=== PATIENT | male | born 1950 | race Caucasian/White ===

== ENCOUNTER 2020-02-19 13:44 | Outpatient (REF) | payer MEDICARE, OTHER, SELFPAY ==
--- NOTE | 2020-02-19 | MM_ITS ---
EXAMINATION: BONE DENSITOMETRY CLINICAL INDICATION: Osteopenia. COMPARISON: Baseline BD dated 12/30/2017. TECHNIQUE: Using a [employer] DXA System (software version: 13.1) manufactured by [employer], dual-energy x-ray absorptiometry was performed of the lumbar spine and left hip. The images are of good technical quality. Summary results are attached. FINDINGS: AP SPINE L1-L4: Current: BMD 0.960 g/cm2, Z-score -1.2, T-score -2.2, osteopenia, 1.1% increase from baseline (<5% change is not significant). Baseline: BMD 0.950 g/cm2. LEFT FEMUR, NECK: Current: BMD 0.836 g/cm2, Z-score -0.2, T-score -1.8, osteopenia. Baseline: BMD 0.851 g/cm2. LEFT FEMUR, TOTAL: Current: BMD 0.886 g/cm2, Z-score -0.5, T-score -1.5, osteopenia, 0.8% decrease from baseline (<5% change is not significant). Baseline: BMD 0.893 g/cm2. IDENTIFIED RISK FACTORS: History of fracture (adult). HISTORY OF FRACTURE: Other fracture (ribs). MEDICATIONS: Vitamin D. IMPRESSION: 1. DIAGNOSIS: Osteopenia based on the lowest T-score value of -2.2 in the lumbar spine applying World Health Organization criteria. 2. 10-YEAR FRACTURE RISK PREDICTION, FRAX: Major osteoporotic fracture (clinical spine, forearm, hip or shoulder) 10.2%. Hip fracture 2.6%. 3. Treatment Recommendations: NOF guidelines recommend consideration for treatment in postmenopausal women and men age 50 and older presenting with the following: -A hip or vertebral (clinical or morphometric) fracture. -T-score less than or equal to -2.5 at the femoral neck or spine after appropriate evaluation to exclude secondary causes. -Low bone mass at the hip or spine and a 10-year fracture probability by FRAX of greater than or equal to 3% for hip fracture or greater than or equal to 20% for major osteoporotic fracture based on the [place] adapted WHO algorithm. 4. Other Recommendations: All treatment decisions require clinical judgment and consideration of individual patient factors, including patient preferences, comorbidities, previous drug use, risk factors not captured in the FRAX model (e.g. frailty, falls, vitamin D deficiency, increased bone turnover, interval significant decline in bone density) and possible under or overestimation of fracture risk by FRAX. Additional medical evaluation for secondary cause of low bone mineral density may be appropriate. FUTURE SCAN RECOMMENDATION: People with diagnosed cases of osteoporosis or at high risk for fracture should have regular bone mineral density tests. For patients eligible for Medicare, routine testing is allowed once every 2 years. The testing frequency can be increased to one year for patients who have rapidly progressing disease, those who are receiving or discontinuing medical therapy to restore bone mass, or have additional risk factors.
== END 2020-02-19 13:45 | disposition home or self-care (01) ==
LOC: HO.MAMMO 13:44
PROVIDERS: PCP Internal Medicine; Visit Provider Internal Medicine
DX: Z13.820 Encounter for screening for osteoporosis (principal); M85.88 Other specified disorders of bone density and structure, other site
CPT/HCPCS: 77080

== ENCOUNTER 2020-04-08 08:45 | Outpatient (REF) | payer MEDICARE, OTHER, SELFPAY ==
[2020-04-08 10:23] LABS: MANUAL DIFF FLAG NO
[2020-04-08 10:47] LABS: Basophils Percent Auto 0.7 % (0-2); Eosinophils Absolute Auto 0.3 X10*3/uL (0.0-0.4); Eosinophils Percent Auto 6.4 % (0-4); Hemoglobin 14.2 g/dl (14.0-18.0); Imm Gran Abs Auto 0.01 X10*3/uL (0.00-0.03); Imm Gran Pct Auto 0.2 % (0.0-0.4); Lymphocytes Absolute Auto 1.1 X10*3/uL (1.2-4.9); Lymphocytes Percent Auto 26.9 % (20-40); Mean Corpuscular HGB Conc 33.8 g/dl (31.0-36.0); Mean Corpuscular Hemoglobin 31.9 pg (27.0-33.0); Mean Corpuscular Volume 94.4 fL (80-98); Mean Platelet Volume 11.1 fL (9.4-12.4); Monocytes Absolute Auto 0.3 X10*3/uL (0.1-1.2); Monocytes Percent Auto 7.8 % (2-11); Neutrophils Absolute Auto 2.5 X10*3/uL (2.0-8.3); Platelet Count 186 X10*3/uL (160-400); Red Blood Count 4.45 X10*6/uL (4.60-5.80); Red Cell Distribution Width 12.2 % (11.0-16.0); White Blood Count 4.2 X10*3/uL (4.8-10.8)
[2020-04-08 10:55] LABS: Estimated Average Glucose 105 mg/dL; Hemoglobin A1c % 5.3 %
[2020-04-08 10:59] LABS: Alanine Aminotransferase 25 U/L (0-40); Alkaline Phosphatase 59 U/L (39-117); Anion Gap 10 (12-20); Aspartate Amino Transferase 32 U/L (5-37); Bilirubin Total 2.1 mg/dL (0.0-1.0); Blood Urea Nitrogen 16 mg/dL (9-16); Carbon Dioxide 29 mmol/L (22-29); Chloride 101 mmol/L (96-108); Cholesterol 136 mg/dL; Estimated Glomerular Filt Rate > 60; Glucose Fasting 94 mg/dL (60-99); HDL Cholesterol 61 mg/dL; LDL Cholesterol Calculated 58 mg/dl; Potassium 5.1 mmol/l (3.3-5.1); Sodium 135 mmol/L (135-145); Total Protein 6.2 g/dL (6.5-8.0); Triglycerides 88 mg/dL
[2020-04-08 11:06] LABS: Glucose Urine UA NEG (NEG); Leukocyte Esterase Urine NEG (NEG); Nitrite Urine NEG (NEG); Urine Blood NEG (NEG); Urine Ketones NEG (NEG); Urine Protein NEG (NEG-TRACE)
[2020-04-08 11:07] LABS: Appearance Urine CLEAR; Color Urine YELLOW
[2020-04-08 11:14] LABS: Vitamin D 25-OH Total 34.5 ng/mL (>30)
[2020-04-08 11:24] LABS: Prostate Specific Antigen 1.33 ng/mL (<0.05-4.0)
[2020-04-08 11:53] LABS: Creatinine Urine 92.18 mg/dL; Microalbumin Urine < 5.0 mg/L
[2020-04-09 15:07] LABS: Calcium (PTHI) 9.3 mg/dL (8.6-10.3); PTHI 34 pg/mL (14-64)
== END 2020-04-08 08:46 | disposition home or self-care (01) ==
LOC: HO.LAB 08:45
PROVIDERS: Absent Provider Internal Medicine; PCP Internal Medicine; Visit Provider Internal Medicine
DX: E78.00 Pure hypercholesterolemia, unspecified (principal); R79.9 Abnormal finding of blood chemistry, unspecified; E80.4 Gilbert syndrome; R73.03 Prediabetes; D69.6 Thrombocytopenia, unspecified; E55.9 Vitamin D deficiency, unspecified; M85.88 Other specified disorders of bone density and structure, other site
CPT/HCPCS: 36415; 80053; 80061; 81003; 82043; 82306; 83036; 83970; 84153; 85025

== ENCOUNTER 2020-05-31 10:03 | Outpatient (REF) | payer MEDICARE, OTHER, SELFPAY ==
--- NOTE | 2020-05-31 | US_ITS ---
EXAMINATION: US RETROPERITONEAL LIMITED (RENAL ONLY) CLINICAL INFORMATION: Hypertension.. COMPARISON: None TECHNIQUE: Routine ultrasound and retroperitoneal Doppler imaging of kidneys was performed . FINDINGS: RIGHT KIDNEY: 8.9 x 5.9 x 5.5 cm (SAG x AP x TRV). The kidney is normal in size, contour, and echogenicity. Renal cortical thickness is normal. No calculi or focal parenchymal lesions. No hydronephrosis. There is anechoic cyst upper pole measuring 1.0 x 1.1 x 1.1 cm. LEFT KIDNEY: 9.3 x 5.3 x 5.5 cm (SAG x AP x TRV). The kidney is normal in size, contour, and echogenicity. Renal cortical thickness is normal. No calculi or focal parenchymal lesions. No hydronephrosis. On renal Doppler exam, Right kidney: The proximal renal artery velocity measures 96.7 cm/second, mid segment measures 89.8 cm/second, distal segment measures 1 30 cm/second. Renal aortic ratio have calculated as renal artery velocity is 112 cm/second. The average resistive index measures 0.72. The renal artery is widely patent. Left kidney: The proximal renal artery left images 1 12 cm/second, mid segment measures 1 43 cm/second, distal segment measures 84.6 cm/second. The renal aortic ratio cannot be calculated as the aortic velocities greater than 100 cm. The average resistive index measures 0.69. The renal artery is widely patent. US/US renal doppler IMPRESSION: Small cyst upper pole right kidney. No echogenic calculi or hydronephrosis in either kidney. No evidence of renal artery stenosis on renal Doppler exam..
--- NOTE | 2020-05-31 | US_ITS ---
EXAMINATION: US RETROPERITONEAL LIMITED (RENAL ONLY) CLINICAL INFORMATION: Hypertension.. COMPARISON: None TECHNIQUE: Routine ultrasound and retroperitoneal Doppler imaging of kidneys was performed . FINDINGS: RIGHT KIDNEY: 8.9 x 5.9 x 5.5 cm (SAG x AP x TRV). The kidney is normal in size, contour, and echogenicity. Renal cortical thickness is normal. No calculi or focal parenchymal lesions. No hydronephrosis. There is anechoic cyst upper pole measuring 1.0 x 1.1 x 1.1 cm. LEFT KIDNEY: 9.3 x 5.3 x 5.5 cm (SAG x AP x TRV). The kidney is normal in size, contour, and echogenicity. Renal cortical thickness is normal. No calculi or focal parenchymal lesions. No hydronephrosis. On renal Doppler exam, Right kidney: The proximal renal artery velocity measures 96.7 cm/second, mid segment measures 89.8 cm/second, distal segment measures 1 30 cm/second. Renal aortic ratio have calculated as renal artery velocity is 112 cm/second. The average resistive index measures 0.72. The renal artery is widely patent. Left kidney: The proximal renal artery left images 1 12 cm/second, mid segment measures 1 43 cm/second, distal segment measures 84.6 cm/second. The renal aortic ratio cannot be calculated as the aortic velocities greater than 100 cm. The average resistive index measures 0.69. The renal artery is widely patent. US/US renal BI IMPRESSION: Small cyst upper pole right kidney. No echogenic calculi or hydronephrosis in either kidney. No evidence of renal artery stenosis on renal Doppler exam..
== END 2020-05-31 10:04 | disposition home or self-care (01) ==
LOC: HO.HMGCX 10:03
PROVIDERS: PCP Internal Medicine; Visit Provider Internal Medicine
DX: I10 Essential (primary) hypertension (principal)
CPT/HCPCS: 76775; 93975

== ENCOUNTER 2021-04-21 10:48 | Outpatient (REF) | payer MEDICARE, OTHER, SELFPAY ==
[2021-04-21 10:51] LABS: MANUAL DIFF FLAG NO
[2021-04-21 11:10] LABS: Basophils Percent Auto 0.4 % (0-2); Eosinophils Absolute Auto 0.2 X10*3/uL (0.0-0.4); Eosinophils Percent Auto 4.6 % (0-4); Hematocrit 40.4 % (42.0-52.0); Hemoglobin 13.6 g/dl (14.0-18.0); Lymphocytes Absolute Auto 1.2 X10*3/uL (1.2-4.9); Lymphocytes Percent Auto 24.9 % (20-40); Mean Corpuscular HGB Conc 33.7 g/dl (31.0-36.0); Mean Corpuscular Hemoglobin 31.9 pg (27.0-33.0); Mean Corpuscular Volume 94.8 fL (80.0-98.0); Mean Platelet Volume 11.1 fL (9.4-12.4); Monocytes Absolute Auto 0.4 X10*3/uL (0.1-1.2); Monocytes Percent Auto 9.3 % (2-11); Neutrophils Absolute Auto 2.8 x10*3/uL (2.0-8.3); Neutrophils Percent Auto 60.8 % (45-73); Platelet Count 190 X10*3/uL (160-400); Red Blood Count 4.26 X10*6/uL (4.60-5.80); Red Cell Distribution Width 12.3 % (11.0-16.0); White Blood Count 4.6 X10*3/uL (4.8-10.8)
[2021-04-21 11:20] LABS: Appearance Urine CLEAR; Color Urine YELLOW; Glucose Urine UA NEG (NEG); Leukocyte Esterase Urine NEG (NEG); Nitrite Urine NEG (NEG); Specific Gravity - Urine 1.015 (1.005-1.025); Urine Blood NEG (NEG); Urine Ketones NEG (NEG); Urine Protein NEG (NEG-TRACE)
[2021-04-21 11:22] LABS: Estimated Average Glucose 108 mg/dL; Hemoglobin A1c % 5.4 %
[2021-04-21 11:42] LABS: Creatinine Urine 129.51 mg/dL; Microalbumin Urine < 5.0 mg/L
[2021-04-21 12:01] LABS: Alanine Aminotransferase 21 U/L (0-40); Albumin Level 3.9 g/dL (3.5-5.0); Alkaline Phosphatase 58 U/L (39-117); Anion Gap 10 (12-20); Aspartate Amino Transferase 28 U/L (5-37); Bilirubin Total 1.8 mg/dL (0.0-1.0); Blood Urea Nitrogen 13 mg/dL (9-16); Carbon Dioxide 26 mmol/L (22-29); Chloride 107 mmol/L (96-108); Cholesterol 122 mg/dL; Estimated Glomerular Filt Rate > 60; Glucose Fasting 108 mg/dL (60-99); HDL Cholesterol 56 mg/dL; LDL Cholesterol Calculated 54 mg/dl; Sodium 139 mmol/L (135-145); Total Protein 6.2 g/dL (6.5-8.0); Triglycerides 64 mg/dL
[2021-04-21 12:22] LABS: PSA,Total (Free>4and<10) 2.04 ng/mL (0.00-4.00)
[2021-04-21 13:08] LABS: Reflex LDLD? No
== END 2021-04-21 10:49 | disposition home or self-care (01) ==
LOC: HO.LNP 10:48
PROVIDERS: Visit Provider Internal Medicine
DX: Z12.5 Encounter for screening for malignant neoplasm of prostate (principal); E78.00 Pure hypercholesterolemia, unspecified; R73.03 Prediabetes; D69.6 Thrombocytopenia, unspecified; R79.9 Abnormal finding of blood chemistry, unspecified; I10 Essential (primary) hypertension
CPT/HCPCS: 80053; 80061; 81003; 82043; 83036; 84153; 85025

== ENCOUNTER 2021-10-23 11:01 | Outpatient (REF) | payer MEDICARE, OTHER, SELFPAY ==
[2021-10-23 12:06] LABS: Cholesterol 133 mg/dL; HDL Cholesterol 55 mg/dL; LDL Cholesterol Calculated 68 mg/dl; Triglycerides 50 mg/dL
[2021-10-23 12:26] LABS: Reflex LDLD? No
== END 2021-10-23 11:02 | disposition home or self-care (01) ==
LOC: HO.LNP 11:01
PROVIDERS: Visit Provider Internal Medicine
DX: E78.00 Pure hypercholesterolemia, unspecified (principal); R73.03 Prediabetes
CPT/HCPCS: 80061

== ENCOUNTER 2022-02-24 08:56 | Outpatient (REF) | payer MEDICARE, OTHER, SELFPAY ==
--- NOTE | ~2022-02-24 | MM_ITS ---
EXAMINATION: BONE DENSITOMETRY CLINICAL INDICATION: Osteopenia. COMPARISON: Previous BD dated 02/19/2020 and baseline BD dated 12/30/2017. TECHNIQUE: Using a [employer] DXA System (software version: 13.1) manufactured by [employer], dual-energy x-ray absorptiometry was performed of the lumbar spine and left hip. The images are of good technical quality. Summary results are attached. FINDINGS: AP SPINE L1-L4: Current: BMD 0.990 g/cm2, Z-score -1.0, T-score -1.9, osteopenia, 3.1% increase from previous, 4.2% increase from baseline (<5% change is not significant). Prior: BMD 0.960 g/cm2. Baseline: BMD 0.950 g/cm2. LEFT FEMUR, NECK: Current: BMD 0.839 g/cm2, Z-score -0.2, T-score -1.8, osteopenia. Prior: BMD 0.836 g/cm2. Baseline: BMD 0.851 g/cm2. LEFT FEMUR, TOTAL: Current: BMD 0.894 g/cm2, Z-score -0.4, T-score -1.4, osteopenia, 0.9% increase from previous, 0.1% increase from baseline (<5% change is not significant). Prior: BMD 0.886 g/cm2. Baseline: BMD 0.893 g/cm2. IDENTIFIED RISK FACTORS: History of fracture (adult). HISTORY OF FRACTURE: Ribs. MEDICATIONS: Calcium, vitamin D. MM/XR DEXA axial skeleton IMPRESSION: 1. DIAGNOSIS: Osteopenia based on the lowest T-score value of -1.9 in the lumbar spine applying World Health Organization criteria. 2. 10-YEAR FRACTURE RISK PREDICTION, FRAX: Major osteoporotic fracture (clinical spine, forearm, hip or shoulder) 10.7%. Hip fracture 2.9%. 3. Treatment Recommendations: NOF guidelines recommend consideration for treatment in postmenopausal women and men age 50 and older presenting with the following: -A hip or vertebral (clinical or morphometric) fracture. -T-score less than or equal to -2.5 at the femoral neck or spine after appropriate evaluation to exclude secondary causes. -Low bone mass at the hip or spine and a 10-year fracture probability by FRAX of greater than or equal to 3% for hip fracture or greater than or equal to 20% for major osteoporotic fracture based on the [place] adapted WHO algorithm. 4. Other Recommendations: All treatment decisions require clinical judgment and consideration of individual patient factors, including patient preferences, comorbidities, previous drug use, risk factors not captured in the FRAX model (e.g. frailty, falls, vitamin D deficiency, increased bone turnover, interval significant decline in bone density) and possible under or overestimation of fracture risk by FRAX. Additional medical evaluation for secondary cause of low bone mineral density may be appropriate. FUTURE SCAN RECOMMENDATION: People with diagnosed cases of osteoporosis or at high risk for fracture should have regular bone mineral density tests. For patients eligible for Medicare, routine testing is allowed once every 2 years. The testing frequency can be increased to one year for patients who have rapidly progressing disease, those who are receiving or discontinuing medical therapy to restore bone mass, or have additional risk factors.
== END 2022-02-24 08:57 | disposition home or self-care (01) ==
LOC: HO.MAMMO 08:56
PROVIDERS: Visit Provider Internal Medicine
DX: Z13.820 Encounter for screening for osteoporosis (principal); M85.88 Other specified disorders of bone density and structure, other site; Z87.81 Personal history of (healed) traumatic fracture; Z79.899 Other long term (current) drug therapy
CPT/HCPCS: 77080

== ENCOUNTER 2022-04-24 11:03 | Outpatient (REF) | payer MEDICARE, OTHER, SELFPAY ==
[2022-04-24 11:09] LABS: MANUAL DIFF FLAG NO
[2022-04-24 11:21] LABS: Appearance Urine Clear; Color Urine Yellow; Glucose Urine UA Negative (Negative); Leukocyte Esterase Urine Negative (Negative); Nitrite Urine Negative (Negative); PH 6.5 (5.0-9.0); Specific Gravity - Urine 1.025 (1.005-1.025); Urine Blood Negative (Negative); Urine Ketones Trace mg/dL (Negative); Urine Protein Negative (Neg-Trace)
[2022-04-24 11:26] LABS: Bacteria Urine None Seen (None Seen); Basophils Percent Auto 0.6 % (0-2); Eosinophils Absolute Auto 0.3 X10*3/uL (0.0-0.4); Eosinophils Percent Auto 5.2 % (0-4); Hematocrit 40.9 % (42.0-52.0); Hemoglobin 13.5 g/dl (14.0-18.0); Hyaline Casts Urine 0-2 /LPF (0-2); Imm Gran Abs Auto 0.02 X10*3/uL (0.00-0.03); Imm Gran Pct Auto 0.4 % (0.0-0.4); Lymphocytes Absolute Auto 1.5 X10*3/uL (1.2-4.9); Lymphocytes Percent Auto 28.7 % (20-40); Mean Corpuscular Hemoglobin 31.5 pg (27.0-33.0); Mean Corpuscular Volume 95.6 fL (80.0-98.0); Mean Platelet Volume 12.5 fL (9.4-12.4); Monocytes Absolute Auto 0.5 X10*3/uL (0.1-1.2); Monocytes Percent Auto 10.3 % (2-11); Neutrophils Absolute Auto 2.8 x10*3/uL (2.0-8.3); Neutrophils Percent Auto 54.8 % (45-73); Platelet Count 215 X10*3/uL (160-400); RBC Urine 0-2 /HPF (0-2); Red Blood Count 4.28 X10*6/uL (4.60-5.80); Red Cell Distribution Width 12.4 % (11.0-16.0); Squamous Epithelial Cell Urine 0-2 /HPF (0-2); WBC Urine 0-5 /HPF (0-5); White Blood Count 5.2 X10*3/uL (4.8-10.8)
[2022-04-24 11:48] LABS: Alanine Aminotransferase 25 U/L (0-40); Alkaline Phosphatase 60 U/L (39-117); Anion Gap 9 (12-20); Aspartate Amino Transferase 29 U/L (5-37); Blood Urea Nitrogen 21 mg/dL (9-16); Carbon Dioxide 27 mmol/L (22-29); Chloride 106 mmol/L (96-108); Cholesterol 136 mg/dL; Estimated Glomerular Filt Rate > 60; Glucose Fasting 94 mg/dL (60-99); HDL Cholesterol 59 mg/dL; LDL Cholesterol Calculated 66 mg/dl; Sodium 138 mmol/L (135-145); Total Protein 6.4 g/dL (6.5-8.0); Triglycerides 57 mg/dL
[2022-04-24 12:12] LABS: Bilirubin Total 1.4 mg/dL (0.0-1.0)
[2022-04-24 12:21] LABS: Creatinine Urine 134.85 mg/dL; Microalbum/Creatinine Ratio Ur 3.7 ug/mg cr
[2022-04-24 12:23] LABS: Estimated Average Glucose 114 mg/dL; Hemoglobin A1c % 5.6 %
== END 2022-04-24 11:04 | disposition home or self-care (01) ==
LOC: HO.LNP 11:03
PROVIDERS: Visit Provider Internal Medicine
DX: E78.00 Pure hypercholesterolemia, unspecified (principal); R79.9 Abnormal finding of blood chemistry, unspecified; R73.03 Prediabetes; I10 Essential (primary) hypertension
CPT/HCPCS: 80053; 80061; 81001; 82043; 82306; 83036; 85025

== ENCOUNTER 2022-10-27 15:03 | Outpatient (REF) | payer MEDICARE, OTHER, SELFPAY ==
[2022-10-27 15:32] LABS: Alanine Aminotransferase 25 U/L (0-40); Alkaline Phosphatase 59 U/L (39-117); Aspartate Amino Transferase 39 U/L (5-37); Bilirubin Direct 0.4 mg/dL (0.0-0.5); Bilirubin Total 1.6 mg/dL (0.0-1.0); Cholesterol 129 mg/dL; Glucose Fasting 100 mg/dL (60-99); HDL Cholesterol 58 mg/dL; LDL Cholesterol Calculated 56 mg/dl; Total Protein 6.3 g/dL (6.5-8.0); Triglycerides 76 mg/dL
[2022-10-27 15:33] LABS: Estimated Average Glucose 100 mg/dL; Hemoglobin A1c % 5.1 %
[2022-10-27 21:30] LABS: Reflex LDLD? No
== END 2022-10-27 15:04 | disposition home or self-care (01) ==
LOC: HO.LNP 15:03
PROVIDERS: Visit Provider Internal Medicine
DX: E78.00 Pure hypercholesterolemia, unspecified (principal); R73.03 Prediabetes
CPT/HCPCS: 80061; 80076; 82947; 83036

== ENCOUNTER 2023-04-29 10:28 | Outpatient (REF) | payer MEDICARE, OTHER, SELFPAY ==
[2023-04-29 10:33] LABS: MANUAL DIFF FLAG NO
[2023-04-29 11:16] LABS: Basophils Percent Auto 0.9 % (0-2); Eosinophils Absolute Auto 0.4 X10*3/uL (0.0-0.4); Eosinophils Percent Auto 7.9 % (0-4); Hematocrit 40.8 % (42.0-52.0); Hemoglobin 13.7 g/dl (14.0-18.0); Imm Gran Abs Auto 0.02 X10*3/uL (0.00-0.03); Imm Gran Pct Auto 0.4 % (0.0-0.4); Lymphocytes Absolute Auto 1.8 X10*3/uL (1.2-4.9); Lymphocytes Percent Auto 38.1 % (20-40); Mean Corpuscular HGB Conc 33.6 g/dl (31.0-36.0); Mean Corpuscular Hemoglobin 30.9 pg (27.0-33.0); Mean Corpuscular Volume 91.9 fL (80.0-98.0); Mean Platelet Volume 11.5 fL (9.4-12.4); Monocytes Absolute Auto 0.5 X10*3/uL (0.1-1.2); Monocytes Percent Auto 11.3 % (2-11); Neutrophils Percent Auto 41.4 % (45-73); Platelet Count 197 X10*3/uL (160-400); Red Blood Count 4.44 X10*6/uL (4.60-5.80); Red Cell Distribution Width 12.7 % (11.0-16.0); White Blood Count 4.7 X10*3/uL (4.8-10.8)
[2023-04-29 11:23] LABS: Appearance Urine Clear; Color Urine Yellow; Glucose Urine UA Negative (Negative); Leukocyte Esterase Urine Negative (Negative); Nitrite Urine Negative (Negative); Specific Gravity - Urine 1.015 (1.005-1.025); Urine Blood Negative (Negative); Urine Ketones Negative (Negative); Urine Protein Negative (Neg-Trace)
[2023-04-29 11:26] LABS: Bacteria Urine None Seen (None Seen); Hyaline Casts Urine 0-2 /LPF (0-2); RBC Urine 0-2 /HPF (0-2); Squamous Epithelial Cell Urine 0-2 /HPF (0-2); WBC Urine 0-5 /HPF (0-5)
[2023-04-29 11:32] LABS: Estimated Average Glucose 103 mg/dL; Hemoglobin A1c % 5.2 % (<6.0)
[2023-04-29 11:37] LABS: Alanine Aminotransferase 25 U/L (0-40); Alkaline Phosphatase 68 U/L (39-117); Anion Gap 10 (12-20); Aspartate Amino Transferase 29 U/L (5-37); Bilirubin Total 1.4 mg/dL (0.0-1.0); Blood Urea Nitrogen 15 mg/dL (9-16); Calcium 9.4 mg/dL (8.4-10.2); Carbon Dioxide 27 mmol/L (22-29); Chloride 103 mmol/L (96-108); Cholesterol 137 mg/dL (<200); Estimated Glomerular Filt Rate > 60; Glucose Fasting 103 mg/dL (60-99); HDL Cholesterol 59 mg/dL (>40); LDL Cholesterol Calculated 64 mg/dL (<100); Sodium 136 mmol/L (135-145); Total Protein 6.9 g/dL (6.5-8.0); Triglycerides 74 mg/dL (<150)
[2023-04-29 12:12] LABS: Creatinine Urine 78.68 mg/dL; Microalbumin Urine < 5.0 mg/L
== END 2023-04-29 10:29 | disposition home or self-care (01) ==
LOC: HO.LNP 10:28
PROVIDERS: Visit Provider Internal Medicine
DX: I10 Essential (primary) hypertension (principal); R73.03 Prediabetes; R79.9 Abnormal finding of blood chemistry, unspecified; E78.00 Pure hypercholesterolemia, unspecified
CPT/HCPCS: 80053; 80061; 81001; 82043; 82570; 83036; 85025

== ENCOUNTER 2023-10-29 10:49 | Outpatient (REF) | payer MEDICARE, OTHER, SELFPAY ==
[2023-10-29 11:29] LABS: Alanine Aminotransferase 21 U/L (0-40); Alkaline Phosphatase 58 U/L (39-117); Aspartate Amino Transferase 28 U/L (5-37); Bilirubin Direct 0.5 mg/dL (0.0-0.5); Bilirubin Total 1.4 mg/dL (0.0-1.0); Cholesterol 128 mg/dL (<200); Glucose Fasting 105 mg/dL (60-99); HDL Cholesterol 61 mg/dL (>40); LDL Cholesterol Calculated 57 mg/dL (<100); Total Protein 6.6 g/dL (6.5-8.0); Triglycerides 54 mg/dL (<150)
[2023-10-29 11:53] LABS: Estimated Average Glucose 108 mg/dL; Hemoglobin A1c % 5.4 % (<6.0)
== END 2023-10-29 10:50 | disposition home or self-care (01) ==
LOC: HO.LNP 10:49
PROVIDERS: Visit Provider Internal Medicine
DX: E78.00 Pure hypercholesterolemia, unspecified (principal); R79.9 Abnormal finding of blood chemistry, unspecified; R73.03 Prediabetes; I10 Essential (primary) hypertension
CPT/HCPCS: 80061; 80076; 82947; 83036

== ENCOUNTER 2024-05-18 11:21 | Outpatient (REF) | payer MEDICARE, OTHER, SELFPAY ==
[2024-05-18 11:25] LABS: MANUAL DIFF FLAG NO
[2024-05-18 11:47] LABS: Basophils Percent Auto 0.5 % (0-2); Eosinophils Absolute Auto 0.3 X10*3/uL (0.0-0.4); Eosinophils Percent Auto 5.3 % (0-4); Hematocrit 40.6 % (42.0-52.0); Hemoglobin 13.4 g/dl (14.0-18.0); Imm Gran Abs Auto 0.01 X10*3/uL (0.00-0.03); Imm Gran Pct Auto 0.2 % (0.0-0.4); Lymphocytes Absolute Auto 1.9 X10*3/uL (1.2-4.9); Lymphocytes Percent Auto 34.1 % (20-40); Mean Corpuscular Hemoglobin 31.5 pg (27.0-33.0); Mean Corpuscular Volume 95.3 fL (80.0-98.0); Mean Platelet Volume 11.9 fL (9.4-12.4); Monocytes Absolute Auto 0.5 X10*3/uL (0.1-1.2); Monocytes Percent Auto 8.3 % (2-11); Neutrophils Absolute Auto 2.9 x10*3/uL (2.0-8.3); Neutrophils Percent Auto 51.6 % (45-73); Platelet Count 187 X10*3/uL (160-400); Red Blood Count 4.26 X10*6/uL (4.60-5.80); Red Cell Distribution Width 12.6 % (11.0-16.0); White Blood Count 5.7 X10*3/uL (4.8-10.8)
[2024-05-18 11:52] LABS: Appearance Urine Clear; Color Urine Yellow; Glucose Urine UA Negative (Negative); Leukocyte Esterase Urine Negative (Negative); Nitrite Urine Negative (Negative); Urine Blood Negative (Negative); Urine Ketones Negative (Negative); Urine Protein Negative (Neg-Trace)
[2024-05-18 11:53] LABS: Estimated Average Glucose 111 mg/dL; Hemoglobin A1C 123.2355 umol/L; Hemoglobin A1c % 5.5 % (<6.0); Total Hemoglobin (HGBA1C) 3391.8978 umol/L
[2024-05-18 12:12] LABS: Creatinine Urine 149.98 mg/dL
[2024-05-18 12:14] LABS: Alanine Aminotransferase 26 U/L (0-40); Alkaline Phosphatase 59 U/L (39-117); Anion Gap 8 (12-20); Aspartate Amino Transferase 41 U/L (5-37); Bilirubin Total 1.1 mg/dL (0.0-1.0); Blood Urea Nitrogen 17 mg/dL (9-16); Calcium 9.1 mg/dL (8.4-10.2); Carbon Dioxide 27 mmol/L (22-29); Chloride 108 mmol/L (96-108); Cholesterol 139 mg/dL (<200); Estimated Glomerular Filt Rate > 60; Glucose Fasting 102 mg/dL (60-99); HDL Cholesterol 64 mg/dL (>40); LDL Cholesterol Calculated 62 mg/dL (<100); Potassium 4.1 mmol/L (3.3-5.1); Sodium 139 mmol/L (135-145); Total Protein 6.4 g/dL (6.5-8.0); Triglycerides 68 mg/dL (<150)
[2024-05-18 12:17] LABS: PSA,Total (Free>4and<10) 2.13 ng/mL (0.00-4.00)
--- OUTSIDE RECORDS SUMMARY | 2024-05-18 12:28 | XMS_ITS ---
Author Organization Tate Lucas MD Address [address] [place] [phone] Care Team Providers Care Shingle Shearing Machine Operator Name Role Phone Tate Lucas Primary Care Provider REASON FOR VISIT refill MEDICATIONS Medication SIG (Take, Route, Frequency, Duration) Notes Start Date End Date Status Albuterol Sulfate HFA 108 (90 Base) MCG/ACT USE 1 INHALATION ORALLY EVERY 4 HOURS NEEDED Inhalation every 4 hrs for 34 days Active Encounters Encounter Location Date Provider Diagnosis Tate Lucas MD [facility] [address] [place] [phone] 01/13/2024 Tate Lucas PLAN OF TREATMENT Medication Medication Name Sig Start Date Stop Date Notes Albuterol Sulfate HFA 108 (9 0 Base) MCG/ACT USE 1 INHALATION ORALLY EVERY 4 HOURS NEEDED Inhalation every 4 hrs for 34 days Next Appt Details Provider Name:Tate muniz, 05/25/2024 01:00:00 PM, [address] [place] [address], [address] [place] [address], [phone],
--- OUTSIDE RECORDS SUMMARY | 2024-05-18 12:28 | XMS_ITS ---
Author Organization Tate Lucas MD Address [address] [place], [place] [id number] Care Team Providers Care Armature Inspector Name Role Phone Tate Lucas Primary Care Provider RESULTS Component Value Reference Range Notes Complete Blood Count Auto Di ff (Not yet reviewed by provider) Interpretation: Performing Lab:[facility], [address] [place] [phone] Notes/Report: White Blood Count 5.7 4.8-10.8 X10*3/uL Red Blood Count 4.26 4.60-5.80 X10*6/uL Hemoglobin 13.4 14.0-18.0 g/dl Hematocrit 40.6 42.0-52.0 % Mean Corpuscular Volume 95.3 80.0-98.0 fL Mean Corpuscular Hemoglobin 31.5 27.0-33.0 pg Mean Corpuscular HGB Conc 33.0 31.0-36.0 g/dl Red Cell Distribution Width 12.6 11.0-16.0 % Platelet Count 187 160-400 X10*3/uL Mean Platelet Volume 11.9 9.4-12.4 fL Neutrophils Percent Auto 51.6 45-73 % Imm Gran Pct Auto 0.2 0.0-0.4 % Lymphocytes Percent Auto 34.1 20-40 % Monocytes Percent Auto 8.3 2-11 % Eosinophils Percent Auto 5.3 0-4 % Basophils Percent Auto 0.5 0-2 % NRBC Pct Auto 0.0 0.0-0.2 /100WBC Neutrophils Absolute Auto 2.9 2.0-8.3 x10*3/u L Imm Gran Abs Auto 0.01 0.00-0.03 X10*3/uL Lymphocytes Absolute Auto 1.9 1.2-4.9 X10*3/u L Monocytes Absolute Auto 0.5 0.1-1.2 X10*3/uL Eosinophils Absolute Auto 0.3 0.0-0.4 X10*3/u L Basophils Absolute Auto 0.0 0.0-0.2 X10*3/uL NRBC Abs Auto 0.000 0.0-0.012 X10*3/uL Comprehensive [place]. Panel Fa st (Not yet reviewed by provider) Interpretation: Performing Lab:[facility], [address] [place] [phone] Notes/Report: Sodium 139 135-145 mmol/L Potassium 4.1 3.3-5.1 mmol/L Chloride 108 96-108 mmol/L Carbon Dioxide 27 22-29 mmol/L Anion Gap 8 12-20 Blood Urea Nitrogen 17 9-16 mg/dL Creatinine 0.87 0.5-1.4 mg/dL Estimated Glomerular Filt Rate > 60 Chronic Kidney Disease: Estimated GFR < 60 mL/min/1.73m2 Severe Kidney Disease: Estimated GFR < 15 mL/min/1.73m2 Glucose Fasting 102 60-99 mg/dL A fasting glucose from 100-125 mg/dl is considered impaired (pre-diabetes). Calcium 9.1 8.4-10.2 mg/dL Bilirubin Total 1.1 0.0-1.0 mg/dL Aspartate Amino Transferase 41 5-37 U/L Alanine Aminotransferase 26 0-40 U/L Total Protein 6.4 6.5-8.0 g/dL Albumin Level 4.0 3.5-5.0 g/dL Alkaline Phosphatase 59 39-117 U/L Lipid Panel (Not yet reviewe d by provider) Interpretation: Performing Lab:[facility], [address] [place] [phone] Notes/Report: Triglycerides 68 <150 mg/dL Desirable Triglyceride: less than 150 mg/dL Borderline High Triglyceride 150-199 mg/dL High Triglyceride: 200-499 mg/dL Very High Triglyceride: greater than or equal to 5OO mg/dL Cholesterol 139 <200 mg/dL Desirable Cholesterol: less than 200 mg/dL Borderline High Cholesterol: 200-239 mg/dL High Cholesterol: greater than 239 mg/dL LDL Cholesterol Calculated 62 <100 mg/dL Desirable LDL: less than 100 mg/dL Near Optimal/Above Optimal LDL: 110-129 mg/dL Borderline High LDL: 130-159 mg/dL High LDL: 160-189 mg/dL Very High LDL: greater than or equal to 190 mg/dL HDL Cholesterol 64 >40 mg/dL Desirable HDL: greater than 40 mg/dL Note: This HDL assay may give artificially low results in patients with liver disease. PSA,Total (Free>4and<10) (No t yet reviewed by provider) Interpretation: Performing Lab:[address] [phone] Notes/Report: PSA,Total (Free>4and<10) 2.13 0.00-4.00 ng/mL A Free PSA was not performed: The percentage of Free PSA can be used to enhance the differentiation of prostate cancer from benign prostatic disease in subjects whose PSA levels are between 4.0 and 10.0 ng/mL. For subjects whose PSA levels are below 4.0 or above 10.0 ng/mL, the risk of prostate cancer is determined on the basis of the PSA alone. Therefore the % Free PSA is recommended only for those subjects whose PSA levels are between 4.0 and 10.0 ng/mL. PSA methodology: [employer] Alinity i Chemiluminescent Microparticle Immunoassay (CMIA) Microalbumin, Random (Not ye t reviewed by provider) Interpretation: Performing Lab:[address] [phone] Notes/Report: Creatinine Urine 149.98 Microalbumin Urine 9.0 Microalbum/Creatinine Ratio Ur 6.0 <30 ug/mg cr Albumin/Creatinine Ratio Reference Ranges: Normal: < 30 ug/mg creatinine Microalbuminuria: 30 - 300 ug/mg creatinine Clinical Albuminuria: > 300 ug/mg creatinine Hemoglobin A1c (Not yet revi ewed by provider) Interpretation: Performing Lab:[facility], [address] [place] [phone] Notes/Report: Hemoglobin A1c % 5.5 <6.0 % Hemoglobin A1C Reference Range Adults: 4.8 - 6.0 % Non diabetic: < 6.0 % Goal: < 7.0 % Additional Action Suggested: > 8.0 % Note: Hemoglobin A1c results are invalid for patients with abnormal amounts of HbF. Blood transfusions may impact the HbA1c concentration in the patient sample. Estimated Average Glucose 111 eAG = Estimated average glucose which is %A1C expressed as average glucose, using the formula of the M7W-Kyaedod Average Glucose study (ADAG), Diabetes Care, Vol.31,#8, 2007 REASON FOR VISIT FASTING LABS Encounters Encounter Location Date Provider Diagnosis Tate Lucas MD [address] [place] [address] [place] [phone] 05/18/2024 Tate Lucas Pure hypercholestero lemia E78.00 ; Elevated BUN R79.9 ; Prediabetes R73.03 and Essential hypertension I10 ASSESSMENTS Encounter Date Diagnosis Assessment Notes Treatment Notes Treatment Clinical Notes 05/18/2024 Pure hypercholestero lemia (ICD-10 - E78.00) 05/18/2024 Elevated BUN (ICD-10 - R79.9) 05/18/2024 Prediabetes (ICD-10 - R73.03) 05/18/2024 Essential hypertensi on (ICD-10 - I10) PLAN OF TREATMENT Pending Test Test Name Order Date Complete Blood Count Auto Diff 5 Comprehensive [place]. Panel Fast 5 Lipid Panel 05/18/2024 PSA,Total (Free>4and<10) 05/18/2024 Microalbumin, Random 05/18/2024 Hemoglobin A1c 05/18/2024 UA ClnCatch+Micro w/rflx Cult 05/18/2024 Next Appt Details Provider Name:Tate muniz, 05/25/2024 01:00:00 PM, [address] [place] [address], [address], [place], [place], [phone],
--- OUTSIDE RECORDS SUMMARY | 2024-05-18 12:28 | XMS_ITS ---
Author Organization Tate Lucas MD Address [address] [place] [phone] Care Team Providers Care Radar Engineer Name Role Phone Tate Lucas Primary Care Provider REASON FOR VISIT New Refill Request MEDICATIONS Medication SIG (Take, Route, Fr equency, Duration) Notes Start Date End Date Status Valsartan 160 MG TAKE 1 TABLET ONCE D AILY Orally Once a day Active Encounters Encounter Location Date Provider Diagnosis Tate Lucas MD [address] [place] [address] [place] [phone] 04/20/2024 Tate Lucas Essential hypertension I10 ASSESSMENTS Encounter Date Diagnosis Assessment Notes Treatment Notes Treatment Clinical Notes 04/20/2024 Essential hypertension (ICD-10 - I10) PLAN OF TREATMENT Medication Medication Name Sig Start Date Stop Date Notes Valsartan 160 MG TAKE 1 TABLET ONCE D AILY Orally Once a day Next Appt Details Provider Name:Tate muniz, 05/25/2024 01:00:00 PM, [address] [place] [address], [address] [facility], [place], [place], [phone],
--- OUTSIDE RECORDS SUMMARY | 2024-05-18 12:29 | XMS_ITS | Patient Health Record ---
Author Organization Tate Lucas MD Address [address] [place], [place] [id number] Care Team Providers Care Loom Blower Name Role Phone Tate Lucas Primary Care Provider ALLERGIES Allergen (clinical drug ingredient) Drug/Non Drug Allergy documented on EMR Reaction Allergy Type Onset Date Status meloxicam Meloxicam tinnutis Drug Allergy Active RESULTS Component Value Reference Range Notes Liver Panel Reviewed date:10/29/2023 12:30:10 PM Interpretation: Performing Lab:[facility], [address] [place] [phone] Notes/Report: Bilirubin Total 1.4 0.0-1.0 mg/dL Bilirubin Direct 0.5 0.0-0.5 mg/dL Aspartate Amino Transferase 28 5-37 U/L Alanine Aminotransferase 21 0-40 U/L Total Protein 6.6 6.5-8.0 g/dL Albumin Level 4.0 3.5-5.0 g/dL Alkaline Phosphatase 58 39-117 U/L Glucose Fasting Reviewed date:10/29/2023 12:20:31 PM Interpretation: Performing Lab:[facility], [address] [place] [phone] Notes/Report: Glucose Fasting 105 60-99 mg/dL A fasting glucose from 100-125 mg/dl is considered impaired (pre-diabetes). Lipid Panel Reviewed date:10/29/2023 12:21:33 PM Interpretation: Performing Lab:[facility], [address] [place] [phone] Notes/Report: Triglycerides 54 <150 mg/dL Desirable Triglyceride: less than 150 mg/dL Borderline High Triglyceride 150-199 mg/dL High Triglyceride: 200-499 mg/dL Very High Triglyceride: greater than or equal to 5OO mg/dL Cholesterol 128 <200 mg/dL Desirable Cholesterol: less than 200 mg/dL Borderline High Cholesterol: 200-239 mg/dL High Cholesterol: greater than 239 mg/dL LDL Cholesterol Calculated 57 <100 mg/dL Desirable LDL: less than 100 mg/dL Near Optimal/Above Optimal LDL: 110-129 mg/dL Borderline High LDL: 130-159 mg/dL High LDL: 160-189 mg/dL Very High LDL: greater than or equal to 190 mg/dL HDL Cholesterol 61 >40 mg/dL Desirable HDL: greater than 40 mg/dL Note: This HDL assay may give artificially low results in patients with liver disease. Hemoglobin A1c Reviewed date:10/29/2023 12:20:40 PM Interpretation: Performing Lab:[facility], [address] [place] [phone] Notes/Report: Hemoglobin A1c % 5.4 <6.0 % Hemoglobin A1C Reference Range Adults: 4.8 - 6.0 % Non diabetic: < 6.0 % Goal: < 7.0 % Additional Action Suggested: > 8.0 % Note: Hemoglobin A1c results are invalid for patients with abnormal amounts of HbF. Blood transfusions may impact the HbA1c concentration in the patient sample. Estimated Average Glucose 108 eAG = Estimated average glucose which is %A1C expressed as average glucose, using the formula of the S9X-Dyfbutc Average Glucose study (ADAG), Diabetes Care, Vol.31,#8, Dec. 2007 UA CC w/rflx Micro + Cult (N ot yet reviewed by provider) Interpretation: Performing Lab:[facility], [address] [place] [phone] Notes/Report: Urine, Clean Catch Color Urine Yellow Appearance Urine Clear PH 6.0 5.0-9.0 Glucose Urine UA Negative Negative mg/dL Urine Blood Negative Negative Specific [place] - Urine 1.020 1.005-1.025 Urine Protein Negative Neg-Trace mg/dL Urine Ketones Negative Negative mg/dL Nitrite Urine Negative Negative Leukocyte Esterase Urine Negative Negative Complete Blood Count Auto Di ff (Not yet reviewed by provider) Interpretation: Performing Lab:[facility], [address] [place] [phone] Notes/Report: White Blood Count 5.7 4.8-10.8 X10*3/uL [...] NRBC Abs Auto 0.000 0.0-0.012 X10*3/uL Comprehensive Mack. Panel Fa st (Not yet reviewed by provider) Interpretation: Performing Lab:[facility], [address] [place] [phone] Notes/Report: Sodium 139 135-145 mmol/L Potassium 4.1 [...] yet reviewe d by provider) Interpretation: Performing Lab:[address] [phone] Notes/Report: Triglycerides 68 <150 mg/dL Desirable Triglyceride: [...] t yet reviewed by provider) Interpretation: Performing Lab:[address] [phone] Notes/Report: PSA,Total (Free>4and<10) 2.13 0.00-4.00 ng/mL A [...] ye t reviewed by provider) Interpretation: Performing Lab:[address] [phone] Notes/Report: Creatinine Urine 149.98 Microalbumin Urine 9.0 Microalbum/Creatinine Ratio Ur 6.0 <30 ug/mg cr Albumin/Creatinine Ratio Reference Ranges: Normal: < 30 ug/mg creatinine Microalbuminuria: 30 - 300 ug/mg creatinine Clinical Albuminuria: > 300 ug/mg creatinine Hemoglobin A1c (Not yet revi ewed by provider) Interpretation: Performing Lab:[facility], [address] [place] [phone] Notes/Report: Hemoglobin A1c % 5.5 <6.0 % [...] average glucose, using the formula of the T6E-Fooqhib Average Glucose study (ADAG), Diabetes Care, Vol.31,#8, Dec. 2007 REASON FOR REFERRAL Reason left knee pain plea se eval and treat for PT Diagnosis 1 Left knee pain (M25. 562) Referral Organization Tate Lucas MD Referring Provider First Name Tate Referring Provider Last Name Shayy Referring Provider Speciality Internal M edicine Referred Provider Synergy, Physical Th erapy Referred Provider Specialty Physical The rapist General Notes Calista Koroma 12:12:16 PM EDT > patient will be setting this up himself , Leighann Koromaette 11/29/2023 12:12:51 PM EDT > referral faxed Ga Annette 11/29/2023 12:13:48 PM EDT > called patient with above info Referral Priority Routine MEDICATIONS Medication SIG (Take, Route, Frequency, Duration) Notes Start Date End Date Status Albuterol Sulfate HFA 108 (90 Base) MCG/ACT USE 1 INHALATION ORALLY EVERY 4 HOURS NEEDED Inhalation every 4 hrs for 34 days Active Montelukast Sodium 10 MG TAKE 1 TABLET D AIL for 90 Active Advair Diskus 250-50 MCG/ACT 1 puff Inhalation Twice a day for 30 days 08/04/2022 Not-Taking Cyclobenzaprine HCl 5 MG 1 tablet at bed time as needed Orally three a day for 10 days 05/14/2020 Not-Taking Voltaren 1 % as directed Transdermal twice a day for 30 days 07/23/2015 Not-Taking Aspir-81 81 MG 1 tablet Orally Once a day for 30 day(s) Active Ventolin HFA * 108 (90 Base) MCG/ACT 2 puffs as needed Inhalation every 4 hrs for 90 days 12/29/2011 Not-Taking Omeprazole 20 MG TAKE 1 CAPSULE DAILY for 90 Active Valsartan 160 MG TAKE 1 TABLET ONCE DAILY Orally Once a day Active Vitamin D 2000 UNIT 1 tablet Orally Once a day Active ProAir HFA 108 (90 Base) MCG/ACT 2 puffs as needed Inhalation every 4 hrs for 30 days 03/14/2015 Not-Taking Diprolene AF 0.05 % 1 application to affected area Externally Once a day for 30 days 12/24/2017 Active Atorvastatin Calcium 80 MG TAKE 1 TABLET DAILY for 90 Active IMMUNIZATIONS Vaccine Route Administration Date Status Comme nts Shingles IM Intramuscular 04/27/2011 Administered Flu Vaccine Unknown 04/07/2013 Administered [facility] Fluarix Quadrivalent IM Intramuscular 01/30/2014 Administe red Fluarix Quadrivalent IM Intramuscular 02/05/2015 Administe red PPSV23 (Pnemovax) IM Intramuscular 07/23/2015 Administered Fluarix Quadrivalent IM Intramuscular 03/10/2016 Administe red Fluarix Quadrivalent IM Intramuscular 03/16/2017 Administe red Prevnar 13 IM Intramuscular 03/23/2017 Administered Influenza High Dose IM Intramuscular 03/31/2018 Administer ed Fluarix Quadrivalent Unknown 05/16/2019 Administered At the pharmacy Shingrix Unknown 05/16/2019 Administered at the pharm acy Shingrix Unknown 09/04/2019 Administered [facility] Influenza High Dose IM Intramuscular 01/19/2020 Administer ed Covid Vaccine Unknown 06/28/2020 Administered Covid Vaccine Unknown 07/19/2020 Administered Pfizer PPSV23 (Pnemovax) IM Intramuscular 08/09/2020 Administered SARS-COV-2 Pfizer Unknown 02/10/2021 Administered Influenza High Dose Unknown 02/10/2021 Administered SARS-COV-2 Pfizer Unknown 09/12/2021 [facility] Influenza High Dose Unknown 02/11/20[address] [facility] SARS-COV-2 Pfizer Unknown 07/28/[address] [facility] [facility] TDaP Unknown 08/19/2023 Administered [facility] Influenza High Dose Unknown 02/07/2024 [address] [facility] SARS-COV-2 Moderna 2022 Unknown 02/07/2024 [address] [facility] Flu Vaccine Unknown 01/30/2014 Pending SOCIAL HISTORY Tobacco Use: Social History Observation Description Date Details (start date - stop date) Never Smoker NA - NA Sex Assigned At : Social History Observation Description Sex Assigned At Unknown Tobacco Use/Smoking Question Answer Notes Patient is a nonsmoker Additional Findings: Tobacco Non-User Cu rrent non-smoker, currently using no form of tobacco Alcohol Screen Question Answer Notes Did you have a drink contain ing alcohol in the past year? Yes How often did you have a dri nk containing alcohol in the past year? Monthly or less (1 point) How many drinks did you have on a typical day when you were drinking in the past year? 1 or 2 drinks (0 point) How often did you have 6 or more drinks on one occasion in the past year? 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) Active confirmed 747171345 Problem Primary osteoarthritis, right hand (M19.041) Active confirmed 6316945680933677 Problem Essential hypertensi on (I10) Active confirmed 31624339 Problem Mild intermittent asthma without complication (J45.20) Active confirmed 504142876 Problem [place] syndrome (E80.4) Active confirmed 56333701 Problem History of [place] (myocardial infarction) (I25.2) Active confirmed 878065653 Problem Prediabetes (R73.03) Active confirmed 7 53842294 Problem Pure hypercholesterolemia (E78.00) Active confirmed 292450227 Problem Bilateral tinnitus (H93.13) Active confirmed 5477555312132 Problem Temporary low platel et count (D69.6) Active confirmed 809141859 Problem Abnormal development of nail (Q84.6) Active confirmed 53471211 Problem Erosive osteoarthrit is (M15.4) Active confirmed 833473601 VITAL SIGNS Blood pressure diastolic 70 mm Hg 11/09/2023 Height 68 in 11/09/2023 Blood pressure systolic 112 mm Hg 11/09/2023 Weight 152 lbs 11/09/2023 BMI 23.11 kg/m2 11/09/2023 Encounters Encounter Location Date Provider Diagnosis Tate Lucas MD [address] [place] [id number] 10/29/2023 Tate Lucas Pure hypercholestero lemia E78.00 ; Elevated BUN R79.9 ; Prediabetes R73.03 ; Essential hypertension I10 and Mild intermittent asthma without complication J45.20 Tate Lucas MD [address] [place] [id number] 05/18/2024 Tate Lucas Pure hypercholestero lemia E78.00 ; Elevated BUN R79.9 ; Prediabetes R73.03 and Essential hypertension I10 Tate Lucas MD [address] [place] [id number] 11/09/2023 Tate Lucas Pure hypercholestero lemia E78.00 ; Essential hypertension I10 ; Pain in left knee M25.562 ; Other chronic pain G89.29 and Skin lesion L98.9 Tate Lucas MD [address] [place] [id number] 11/29/2023 Tate Lucas MD [address] [place] [id number] 01/13/2024 Tate Lucas MD [address] [place], [place] [id number] 04/20/2024 Tate Lucas Essential hypertensi on I10 ASSESSMENTS Encounter Date Diagnosis Assessment Notes Treatment Notes Treatment Clinical Notes 10/29/2023 Elevated BUN (ICD-10 - R79.9) 10/29/2023 Pure hypercholestero lemia (ICD-10 - E78.00) 05/18/2024 Pure hypercholestero lemia (ICD-10 - E78.00) 11/09/2023 Essential hypertensi on (ICD-10 - I10) doing well on meds, will continue current regiment 11/09/2023 Pure hypercholestero lemia (ICD-10 - E78.00) doing well with excellent readings, will contonue current regiment 04/20/2024 Essential hypertensi on (ICD-10 - I10) 10/29/2023 Prediabetes (ICD-10 - R73.03) 05/18/2024 Elevated BUN (ICD-10 - R79.9) 11/09/2023 Pain in left knee (I CD-10 - M25.562) will observe at present 10/29/2023 Essential hypertensi on (ICD-10 - I10) 05/18/2024 Prediabetes (ICD-10 - R73.03) 11/09/2023 Other chronic pain (ICD-10 - G89.29) will observe 10/29/2023 Mild intermittent as thma without complication (ICD-10 - J45.20) 05/18/2024 Essential hypertensi on (ICD-10 - I10) 11/09/2023 Skin lesion (ICD-10 - L98.9) to go to surgeon/ patient will calling to make his own appt with Dr. Mychal Trinh in [place] PLAN OF TREATMENT Pending Test Test Name Order Date Electrocardiogram (EKG) 03/14/2015 Electrocardiogram (EKG) 03/31/2018 Electrocardiogram (EKG) 04/06/2019 XR CHEST 2 VIEW PA & LAT 06/25/2022 BONE DENSITY DEXA 12/24/2017 BONE DENSITY DEXA 02/16/2020 US RENAL BILATERAL 05/21/2020 US RENAL DOPPLER 05/21/2020 Complete Blood Count Auto Diff 01/02/202 5 Comprehensive Mack. Panel Fast 5 Lipid Panel 05/18/2024 PSA,Total (Free>4and<10) 05/18/2024 Microalbumin, Random 05/18/2024 Hemoglobin A1c 05/18/2024 UA CC w/rflx Micro + Cult 05/18/2024 UA ClnCatch+Micro w/rflx Cult 05/18/2024 Next Appt Details Provider Name:Tate Gonzalez ier, 05/25/2024 01:00:00 PM, [address] [place] [address], [address], [place], [place], [id number], Insurance Providers Payer Name Payer Address Payer Phone Subscriber Number Group Number Insured Name Patient Relationship to Insured Coverage Start Date Coverage End Date MEDICARE [employer]IC [address] [place] [address] [id number] Jose Armando Zhu Self - patient is the insured [facility] [address] [place] [address] [phone] [id number] Jose Armando Zhu Self - patient is the insured MEDICAL (GENERAL) HISTORY Medical History History ICD Code knee surgery Colonoscopy 2010 Theodore's esophagus had upper endo and d ue in 2021 530.85
== END 2024-05-18 11:22 | disposition home or self-care (01) ==
LOC: HO.LNP 11:21
PROVIDERS: Visit Provider Internal Medicine
DX: E78.00 Pure hypercholesterolemia, unspecified (principal); R79.9 Abnormal finding of blood chemistry, unspecified; R73.03 Prediabetes; I10 Essential (primary) hypertension; Z12.5 Encounter for screening for malignant neoplasm of prostate
CPT/HCPCS: 80053; 80061; 81003; 82043; 82570; 83036; 84153; 85025

== ENCOUNTER 2024-06-28 08:12 | Outpatient (REF) | payer MEDICARE, OTHER, SELFPAY ==
--- NOTE | ~2024-06-28 | MM_ITS ---
EXAMINATION: DXA BONE DENSITY AXIAL HISTORY: Osteoporosis TECHNIQUE: [facility] Dual energy absorptiometry (DEXA) of the lumbar spine, total left hip, and femoral neck was performed. COMPARISON: Comparison is made with the prior examination dated 02/24/2022. FINDINGS: The bone mineral density of the lumbar spine is 0.983 with a T-score of -2.1, and a Z-score of -1.2. This represents a BMD change of -3.5% compared to the prior exam. This is statistically significant. The bone mineral density of the left total hip is 0.885 with a T-score of -1.5, and a Z-score of -0.4. This represents BMD change of -1.0% compared to the prior exam. This is not statistically significant. The bone mineral density of the left femoral neck is 0.794 with a T-score of -2.1, and a Z-score of -0.5. This represents BMD change of -5.4% compared to the prior exam. FRACTURE RISK: The FRAX index suggests a ten year probability of major osteoporotic fracture of 8.0%, and of hip fracture 2.9%. MM/XR DEXA axial skeleton IMPRESSION: Based on bone mineral density, and according to World Health Organization (WHO) criteria, the diagnosis is consistent with osteopenia. All bone density values are in grams per centimeter squared (g/cm2). Statistically, 68% of repeat scans fall within 1 SD (+/- 0.010 g/cm2 for AP spine L1-L4) and 1 SD (+/- 0.012 g/cm2 for femur total) FRAX is a trademark of the [employer] [place] [facility] [employer], a World Health Organization (WHO) Collaborating Center. Electronically signed by: Rolando Rincon MD 06/28/2024 08:46 AM [facility]
== END 2024-06-28 08:13 | disposition home or self-care (01) ==
LOC: HO.MAMMO 08:12
PROVIDERS: PCP Internal Medicine; Visit Provider Internal Medicine
DX: Z13.820 Encounter for screening for osteoporosis (principal); M85.88 Other specified disorders of bone density and structure, other site
CPT/HCPCS: 77080

== ENCOUNTER → 2024-06-28 08:15 | Outpatient (BNV) | payer MEDICARE, OTHER, SELFPAY | PROVIDERS: PCP Internal Medicine; Visit Provider Radiology Diagnostic Radiology | DX: E28.39 Other primary ovarian failure (principal) | CPT/HCPCS: 77080 ==

== ENCOUNTER 2024-11-13 10:32 | Outpatient (REF) | payer MEDICARE, OTHER, SELFPAY ==
[2024-11-13 10:54] LABS: Estimated Average Glucose 111 mg/dL; Hemoglobin A1c % 5.5 % (<6.0)
--- OUTSIDE RECORDS SUMMARY | 2024-11-13 11:18 | XMS_ITS | Patient Health Record ---
Author Organization Tate Lucas MD Address [address] [place], [place] [id number] Care Team Providers Care Hand Launderer Name Role Phone Tate Lucas Primary Care Provider [phone] Allergies Allergen (clinical drug ingredient) Drug/Non Drug Allergy documented on EMR Reaction Allergy Type Onset Date Status meloxicam Meloxicam tinnutis Drug Allergy Active Results Component Value Reference Range Notes Complete Blood Count Auto Di ff Reviewed date:05/18/2024 01:57:49 PM Interpretation: Performing Lab:[facility], [address] [place] [phone] Notes/Report: White Blood Count 5.7 4.8-10.8 X10*3/uL [...] NRBC Abs Auto 0.000 0.0-0.012 X10*3/uL Comprehensive [place]. Panel Fa st Reviewed date:05/18/2024 02:00:35 PM Interpretation: Performing Lab:[facility], [address] [place] [phone] Notes/Report: Sodium 139 135-145 mmol/L Potassium 4.1 [...] Alkaline Phosphatase 59 39-117 U/L Lipid Panel Reviewed date:05/18/2024 01:57:15 PM Interpretation: Performing Lab:[facility], [address] [place] [phone] Notes/Report: Triglycerides 68 <150 mg/dL Desirable Triglyceride: [...] in patients with liver disease. PSA,Total (Free>4and<10) Reviewed date:05/18/2024 01:56:24 PM Interpretation: Performing Lab:[facility], [address] [place] [phone] Notes/Report: PSA,Total (Free>4and<10) 2.13 0.00-4.00 ng/mL A [...] i Chemiluminescent Microparticle Immunoassay (CMIA) Microalbumin, Random Reviewed date:05/18/2024 01:56:50 PM Interpretation: Performing Lab:[facility], [address] [place] [phone] Notes/Report: Creatinine Urine 149.98 Microalbumin Urine 9.0 Microalbum/Creatinine Ratio Ur 6.0 <30 ug/mg cr Albumin/Creatinine Ratio Reference Ranges: Normal: < 30 ug/mg creatinine Microalbuminuria: 30 - 300 ug/mg creatinine Clinical Albuminuria: > 300 ug/mg creatinine Hemoglobin A1c Reviewed date:05/18/2024 01:56:42 PM Interpretation: Performing Lab:[facility], [address] [place] [phone] Notes/Report: Hemoglobin A1c % 5.5 <6.0 % [...] average glucose, using the formula of the Q4Z-Zywoekb Average Glucose study (ADAG), Diabetes Care, Vol.31,#8, 2007 Hemoglobin A1c (Not yet revi ewed by provider) Interpretation: Performing Lab:[facility], [address] [place] [phone] Notes/Report: Hemoglobin A1c % 5.5 <6.0 % [...] average glucose, using the formula of the N8O-Vqekwka Average Glucose study (ADAG), Diabetes Care, Vol.31,#8, Dec. 2007 Occult Blood, Stool, Guaiac Reviewed date:05/25/2024 01:57:10 PM Interpretation:Negative Performing Lab: Notes/Report: Negative Occult Blood, Stool, Guaiac Neg UA CC w/rflx Micro + Cult Reviewed date:05/18/2024 01:57:31 PM Interpretation: Performing Lab:[facility], [address] [place] [phone] Notes/Report: Urine, Clean Catch Color Urine Yellow Appearance Urine Clear PH 6.0 5.0-9.0 Glucose Urine UA Negative Negative mg/dL Urine Blood Negative Negative Specific [place] - Urine 1.020 1.005-1.025 Urine Protein Negative Neg-Trace mg/dL Urine Ketones Negative Negative mg/dL Nitrite Urine Negative Negative Leukocyte Esterase Urine Negative Negative XR DEXA axial skeleton Reviewed date:06/30/2024 12:44:57 PM Interpretation: Performing Lab: Notes/Report: [place] [address] [place], [place] [address] Mammography Report Signed Patient: Jose Armando Zhu MR#: [id number] : 1950 Acct:[id number] Age/Sex: 74 / M ADM Date: 06/28/24 Loc: HO.MAMMO Attending Dr: Tate Lucas MD Ordering Physician: Tate Lucas MD Results: Date of Service: 06/28/24 Follow Up: Procedure(s): XR DEXA axial skeleton Accession Number(s): [id number] cc: Tate Lucas MD EXAMINATION: DXA BONE DENSITY AXIAL HISTORY: Osteoporosis TECHNIQUE: Dwllr Dual energy absorptiometry (DEXA) of the lumbar spine, total left hip, and femoral neck was performed. COMPARISON: Comparison is made with the prior examination dated 02/24/2022. FINDINGS: The bone mineral density of the lumbar spine is 0.983 with a T-score of -2.1, and a Z-score of -1.2. This represents a BMD change of -3.5% compared to the prior exam. This is statistically significant. The bone mineral density of the left total hip is 0.885 with a T-score of -1.5, and a Z-score of -0.4. This represents BMD change of -1.0% compared to the prior exam. This is not statistically significant. The bone mineral density of the left femoral neck is 0.794 with a T-score of -2.1, and a Z-score of -0.5. This represents BMD change of -5.4% compared to the prior exam. FRACTURE RISK: The FRAX index suggests a ten year probability of major osteoporotic fracture of 8.0%, and of hip fracture 2.9%. MM/XR DEXA axial skeleton IMPRESSION: Based on bone mineral density, and according to World Health Organization (WHO) criteria, the diagnosis is consistent with osteopenia. All bone density values are in grams per centimeter squared (g/cm2). Statistically, 68% of repeat scans fall within 1 SD (+/- 0.010 g/cm2 for AP spine L1-L4) and 1 SD (+/- 0.012 g/cm2 for femur total) FRAX is a trademark of the [employer] [place] for Metabolic Bone Disease, a World Health Organization (WHO) Collaborating Center. Electronically signed by: Rolando Rincon MD 06/28/2024 08:46 AM EST Dictated By: Rolando Rincon MD Signed By: <Electronically signed by Rolando Rincon MD in OV> 06/28/24 0846 DD/ 4 TD/TT: 06/28/2435 Defensive [employer] Control Systems Operator: [place] [facility] [address] [place] [address] Mammography Report Signed Patient: Jose Armando Zhu MR#: [id number] : 1950 Acct:[id number] Age/Sex: 74 / M ADM Date: 06/28/24 Loc: HO.MAMMO Attending Dr: Tate Lucas MD Ordering Physician: Tate Lucas MD Results: Date of Service: 06/28/24 Follow Up: Procedure(s): XR DEX A axial skeleton Accession Number(s): [id number] cc: Tate Lucas MD EXAMINATION: DXA BON E DENSITY AXIAL HISTORY: Osteoporosis TECHNIQUE: Dwllr Dual energy absorptiometry (DEXA) of the lumbar spine, total left hip, and femoral neck was performed. COMPARISON: Comparis on is made with the prior examination dated 02/24/2022. FINDINGS: The bone mineral density of the lumbar spine is 0.983 with a T-score of -2.1, and a Z-score of -1.2. This represents a BM D change of -3.5% compared to the prior exam. This is statistically significant. The bone mineral density of the left total hip is 0.885 with a T-score of -1.5, and a Z-sco re of -0.4. This represents BMD change of -1.0% compared to the prior exam. This is not statistically significant. The bone mineral density of the left femoral neck is 0.794 with a T-score of -2.1, and a Z-score of -0.5. This represents BMD change of -5.4% compared to the prior exam. FRACTURE RISK: The FRAX index suggests a ten year probability of major osteoporotic fracture of 8.0%, an d of hip fracture 2.9%. __ MM/XR DEXA axial skeleton IMPRESSION: Based on bone minera l density, and according to World Health Organization (WHO) criteria, the diagnosis is consistent with osteopenia. All bone density values are in grams per centimeter squared (g/cm2). Statistically, 68% o f repeat scans fall within 1 SD (+/- 0.010 g/cm2 for AP spine L1-L4) and 1 SD (+/- 0.012 g/cm2 for femur total) FRAX is a trademark of the [employer] [place] for Metabolic Bone Disease, a World Health Organization (WHO) Collaborating Center. Electronically minnie d by: Rolando Rincon MD 06/28/2024 08:46 AM EST Dictated By: Rolando Rincon MD Signed By: <Electronically signed by Rolando Rincon MD in OV> 06/28/24 0846 DD/ TD/TT: 06/28/24 0835 Defensive Fire Control Systems Operator: Kimmie Cruz (Not yet reviewed by provider) Interpretation: Performing Lab:[facility], [address] [place] [phone] Notes/Report: Kimmie Cruz See Note Specimen held untested for 24 hours; Call to request Chemistry testing. Reason For Referral Reason left knee pain plea se eval and treat for PT Diagnosis 1 Left knee pain (M25. 562) Referral Organization Tate Lucas MD Referring Provider First Name Tate Referring Provider Last Name Shayy Referring Provider Speciality Internal M edicine Referred Provider Denis Frost Referred Provider Specialty Physical The rapist General Notes Calista Koroma 12:12:16 PM EDT > patient will be setting this up himself , Calista Koroma 11/29/2023 12:12:51 PM EDT > referral faxed , Calista Koroma 11/29/2023 12:13:48 PM EDT > called patient with above info Referral Priority Routine Reason please shahriar mc Diagnosis 1 Osteopenia of lumbar spine (M85.88) Referral Organization Tate Lucas MD Referring Provider First Name Tate Referring Provider Last Name Shayy Referring Provider Speciality Internal M edicine Referred Provider Rossy Fuentes Referred Provider Specialty Endocrinolog y General Notes Calista Koroma 0 06/30/2024 08:59:57 AM >info faxed to office. Patient will call back with an appt, Calista Koroma 07/04/2024 10:41:31 AM >info refaxed per patient, Calista Koroma 07/14/2024 12:39:55 PM >INFO FAXED AGAIN, Calista Koroma 07/20/2024 02:41:23 PM >referral info mailed to patient Referral Priority Routine Referral Appointment Date 01/29/2025 Medications Medication SIG (Take, Route, Frequency, Duration) Notes Start Date End Date Status Valsartan 160 MG TAKE 1 TABLET ONCE DAILY Orally Once a day Active Atorvastatin Calcium 80 MG TAKE 1 TABLET DAILY Active Montelukast Sodium 10 MG TAKE 1 TABLET DAILY Active Albuterol Sulfate HFA 108 (90 Base) MCG/ACT TAKE 1 PUFF BY MOUTH EVERY 4 HOURS NEEDED for 30 Active Aspir-81 81 MG 1 tablet Orally Once a day for 30 day(s) Active Vitamin D 2000 UNIT 1 tablet Orally Once a day Active ProAir HFA 108 (90 Base) MCG/ACT 2 puffs as needed Inhalation every 4 hrs for 30 days 03/14/2015 Not-Taking Diprolene AF 0.05 % 1 application to affected area Externally Once a day for 30 days 12/24/2017 Active Advair Diskus 250-50 MCG/ACT 1 puff Inhalation Twice a day for 30 days 08/04/2022 Active Cyclobenzaprine HCl 5 MG 1 tablet at bed time as needed Orally three a day for 10 days 05/14/2020 Not-Taking Voltaren 1 % as directed Transdermal twice a day for 30 days 07/23/2015 Not-Taking Wixela Inhub 250-50 MCG/ACT 1 puff Inhalation Twice a day for 90 days 08/10/2024 Active Omeprazole 20 MG TAKE 1 CAPSULE DAILY for 90 Active Immunizations Vaccine Route Administration Date Status Comme nts [...] Influenza High Dose Unknown 02/11/[address] [facility] SARS-COV-2 Pfizer Unknown 07/28/[address] [facility] TDaP Unknown 08/19/2023 [facility] Influenza High Dose Unknown 02/07/[address] [facility] SARS-COV-2 Moderna 2022 Unknown 02/07/[address] [facility] RSV Unknown 05/30/2024 Administered Flu Vaccine Unknown 01/30/2014 Pending Social History Tobacco Use: Social History Observation Description Date Details (start date - stop date) Never Smoker NA - NA Tobacco Use/Smoking Question Answer Notes Patient is [...] Never (0 point) Points 1 Interpretation Negative Problems Problem Type SNOMED Code ICD Code Onset Dates Problem Status W/U Status Risk Notes Problem 721769187 Reflux esophagit is (K21.00) Active confirmed Problem 442610445 Elevated BUN (R79.9) Active confirmed Problem 43898302 Other chronic pa in (G89.29) Active confirmed Problem 617311226 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 Problem 6711710622341648 Primary osteoarthritis, right hand (M19.041) Active confirmed Problem 10905752 Essential hypert ension (I10) Active confirmed Problem 864680984 Mild intermitten t asthma without complication (J45.20) Active confirmed Problem 99197995 [place] syndrom e (E80.4) Active confirmed Problem 354963169 History of HI (myocardial infarction) (I25.2) Active confirmed Problem 140125204 Prediabetes (R73.03) Active confirmed Problem 657945882 Pure hypercholesterolemia (E78.00) Active confirmed Problem 8690957206050 Bilateral tinnit us (H93.13) Active confirmed Problem 996705994 Temporary low pl atelet count (D69.6) Active confirmed Problem 78139654 Abnormal develop ment of nail (Q84.6) Active confirmed Problem 482112304 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) Active confirmed Vital Signs Blood pressure diastolic 70 mm Hg 05/25/2024 [place] ght is up 5 pounds since 11-09-23 Height 68 in 05/25/2024 weight is up 5 pounds since 11-09-23 Blood pressure systolic 118 mm Hg 05/25/2024 weig ht is up 5 pounds since 11-09-23 Weight 157 lbs 05/25/2024 weight is up 5 pounds since 11-09-23 BMI 23.87 kg/m2 05/25/2024 weight is up 5 pounds since 11-09-23 Encounters Encounter Location Date Provider Diagnosis Tate Lucas MD [address] [place] [id number] 05/18/2024 Tate Lucas Pure hypercholestero lemia E78.00 ; Elevated BUN R79.9 ; Prediabetes R73.03 and Essential hypertension I10 Tate Lucas MD [address] [place] [id number] 11/13/2024 Tate Lucas Pure hypercholestero lemia E78.00 and Prediabetes R73.03 Tate Lucas MD [address] [place] [id number] 05/25/2024 Tate Lucas Mild intermittent as thma without complication J45.20 ; History of HI (myocardial infarction) I25.2 ; Theodore's esophagus without dysplasia K22.70 ; Osteopenia of lumbar spine M85.88 ; Pure hypercholesterolemia E78.00 ; Prediabetes R73.03 ; Essential hypertension I10 ; Colon cancer screening Z12.11 and Depression screening Z13.31 Tate Lucas MD [address] [place] [id number] 11/29/2023 Tate Lucas MD [address] [place] [id number] 01/13/2024 Tate Lucas MD [address] [place] [id number] 06/30/2024 Tate Lucas MD [address] [place] [id number] 08/10/2024 Tate Lucas MD [address] [place] [id number] 09/15/2024 Tate Lucas MD [address] [place] [id number] 04/20/2024 Tate Lucas Essential hypertensi on I10 Assessments Encounter Date Diagnosis (ICD Code) Assessment Notes Treatment Notes Treatment Clinical Notes Section Notes 05/18/2024 Pure hypercholesterolemia (ICD-10 - E78.00) 05/18/2024 Elevated BUN (ICD-10 - R79.9) 11/13/2024 Pure hypercholesterolemia (ICD-10 - E78.00) 05/25/2024 Mild intermittent as thma without complication (ICD-10 - J45.20) stable, will continue current regiment 05/25/2024 History of HI (myocardial infarction) (ICD-10 - I25.2) 04/20/2024 Essential hypertensi on (ICD-10 - I10) 05/18/2024 Prediabetes (ICD-10 - R73.03) 11/13/2024 Prediabetes (ICD-10 - R73.03) 05/25/2024 Theodore's esophagus without dysplasia (ICD-10 - K22.70) 05/18/2024 Essential hypertensi on (ICD-10 - I10) 05/25/2024 Osteopenia of lumbar spine (ICD-10 - M85.88) order faxed to [facility] CS dept 05/25/2024 Pure hypercholesterolemia (ICD-10 - E78.00) 05/25/2024 Prediabetes (ICD-10 - R73.03) stable, no need for medication at this time 05/25/2024 Essential hypertensi on (ICD-10 - I10) stable, will continue current regiment 05/25/2024 Colon cancer screeni ng (ICD-10 - Z12.11) guaiac negative 05/25/2024 Depression screening (ICD-10 - Z13.31) negative screen Plan Of Treatment Pending Test Test Name Order Date Electrocardiogram (EKG) 03/31/2018 Electrocardiogram (EKG) 04/06/2019 Electrocardiogram (EKG) 03/14/2015 XR CHEST 2 VIEW PA & LAT 06/25/2022 BONE DENSITY DEXA 05/25/2024 BONE DENSITY DEXA 02/16/2020 BONE DENSITY DEXA 12/24/2017 US RENAL BILATERAL 05/21/2020 US RENAL DOPPLER 05/21/2020 Liver Panel 11/13/2024 Glucose Fasting 11/13/2024 Lipid Panel with Reflex 11/13/2024 Hold Gold 11/13/2024 Hemoglobin A1c 11/13/2024 Next Appt Details Provider Name:Tate muniz, 11/21/2024 10:15:00 AM, [address] [place] [address] Drive, [address], [place], [place], [phone], Provider Name:Tate Gonzalez ier, 05/24/2025 07:15:00 AM, [address], [address], [place], [phone], Provider Name:Tate Gonzalez ier, 05/31/2025 08:30:00 AM, [address], [address], [place], [phone], Insurance Providers Payer Name Payer Address Payer Phone Subscriber Number Group Number Insured Name Patient Relationship to Insured Coverage Start Date Coverage End Date MEDICARE [employer] [address] [place] [address] [id number] Jose Armando Zhu Self - patient is the insured [facility] [address] [place] [address] [id number] Jose Armando Zhu Self - patient is the insured Medical (General) History Medical History History ICD Code knee surgery Colonoscopy 2010 Theodore's esophagus had upper endo and d ue in 2021 530.85 upper and lower endoscopy 2022
[2024-11-13 11:29] LABS: Alanine Aminotransferase 22 U/L (0-40); Albumin Level 4.1 g/dL (3.5-5.0); Alkaline Phosphatase 70 U/L (39-117); Aspartate Amino Transferase 37 U/L (5-37); Bilirubin Direct 0.6 mg/dL (0.0-0.5); Bilirubin Total 2.1 mg/dL (0.0-1.0); Cholesterol 135 mg/dL (<200); Glucose Fasting 96 mg/dL (60-99); HDL Cholesterol 57 mg/dL (>40); LDL Cholesterol Calculated 63 mg/dL (<100); Total Protein 6.5 g/dL (6.5-8.0); Triglycerides 77 mg/dL (<150)
[2024-11-13 13:42] LABS: Reflex LDLD? No
== END 2024-11-13 10:33 | disposition home or self-care (01) ==
LOC: HO.LNP 10:32
PROVIDERS: Visit Provider Internal Medicine
DX: E78.00 Pure hypercholesterolemia, unspecified (principal); R73.03 Prediabetes
CPT/HCPCS: 80061; 80076; 82947; 83036